=== PATIENT | female | born 1960 | race Caucasian/White ===

== ENCOUNTER → 2017-05-15 | Outpatient (CLI) | payer MEDICARE, OTHER ==
[~2017-05-15] MED LIST: ADULT LOW DOSE81 MG PO; AMOXICILLIN 50500 MG PO; CRESTOR5 MG; FLEXERIL PO; HYDROXYCHLOROQ200 M1; LEVOXYL200 MCG; NORCO 5-325 TA1 EACH PO; PREDNISONE 20 M20 MG PO; ROBITUSSIN COU237 ML PO; ROBITUSSIN15 MG/5 M1; ULTRAM 50MG TAB50 MG PO; VENTOLIN HFA INH8 GM IH; ZPAK PO
== END ==
LOC: M.LAB 10:32
DX: E03.9 Hypothyroidism, unspecified (principal); E78.5 Hyperlipidemia, unspecified

== ENCOUNTER → 2017-08-13 | Outpatient (CLI) | payer MEDICARE, OTHER ==
[2017-08-13 10:09] LABS: CHOLESTEROL 208 mg/dL (<200); HDL CHOLESTEROL 28 mg/dL (>40); LDL CHOLESTEROL 144 mg/dL (<100); TC:HDL 7.4 Ratio (Not establshd); TRIGLYCERIDE 181 mg/dL (<150); VLDL 36 mg/dL (<40)
[2017-08-13 10:10] LABS: SERUM ASSESSMENT Clear
== END ==
LOC: M.LAB 09:28
PROVIDERS: Internal Medicine Cardiovascular Disease
DX: E78.5 Hyperlipidemia, unspecified (principal)

== ENCOUNTER → 2019-02-23 | Outpatient (CLI) | payer OTHER | LOC: M.LAB 09:17 | DX: E03.9 Hypothyroidism, unspecified (principal) ==

== ENCOUNTER 2020-11-13 20:09 | Emergency (ER) | payer OTHER ==
[~2020-11-13] VITALS: Ht 152.4 cm; Wt 99.8 kg
[2020-11-13] MEDS ORDERED: METFORMIN HCL500 M3 PO (20:31)
[2020-11-13 21:45] LABS: URINE BLOOD 3+ (Negative); URINE CLARITY CLOUDY; URINE COLOR DARK YELLOW; URINE GLUCOSE-RANDOM NEGATIVE (Negative); URINE KETONES NEGATIVE (Negative); URINE LEUKOCYTES-REFLEX 1+ (Negative); URINE PROTEIN 2+ (Negative); URINE SPECIFIC GRAVITY >= 1.030 (1.005-1.030)
[2020-11-13 21:48] LABS: ICTOTEST (BILI CONFIRMATORY) Negative (Negative); URINE BILIRUBIN 1+ (Negative); URINE NITRITE-REFLEX POSITIVE (Negative)
[2020-11-13 21:50] LABS: BACTERIA-REFLEX 1-9 Few /HPF (None Seen); SQUAMOUS 4-10 Moderate /LPF (0-3); URINE RBC >20 Many /HPF (0-2); URINE WBC-REFLEX 0-5 Rare /HPF (0-5)
[2020-11-13 21:51] LABS: CASTS None Seen /LPF (None Seen); CRYSTALS None Seen /LPF (None Seen)
[2020-11-13 21:57] LABS: ABSOLUTE BASOPHILS 0.1 thou/uL (0.0-0.2); ABSOLUTE EOSINOPHILS 0.2 thou/uL (0.0-0.7); ABSOLUTE LYMPHOCYTES 2.2 thou/uL (0.8-5.3); ABSOLUTE MONOCYTES 0.6 thou/uL (0.0-1.2); BASOPHILS 0.7 %; HEMATOCRIT 34.5 % (37.0-47.0); LYMPHOCYTES 20.2 %; MCH 32.3 pg (26.0-34.0); MCHC 34.8 g/dL (28.0-37.0); MCV 92.7 fL (80.0-100.0); MONOCYTES 5.3 %; MPV 7.3 fl. (7.2-11.1); NUCLEATED RBCS 0 /100WBC; PLATELET COUNT* 302 thou/uL (150-400); POLYS 71.8 %; RBC 3.72 mil/uL (4.20-5.00); RDW-CV 13.2 % (10.5-14.5); WBC 11.1 thou/uL (4.0-11.0)
[2020-11-13 22:03] LABS: CALCIUM 9.2 mg/dL (8.5-10.1); POTASSIUM 4.2 mmol/L (3.5-5.1)
[2020-11-13 22:08] LABS: ALBUMIN 3.9 g/dL (3.4-5.0); TOTAL BILIRUBIN 0.3 mg/dL (<0.1-1.0); TOTAL PROTEIN 7.7 g/dL (6.4-8.2)
[2020-11-14] MEDS ORDERED: BACTRIM DS TAB1 EACH PO (00:04)
[2020-11-14] MEDS ORDERED: ZOFRAN ODT4 MG PO (00:04)
[2020-11-14] MEDS ORDERED: HYDROCODON-ACE1 EAC8 PO (00:04)
[2020-11-14 00:57] VITALS: BP 111/64
== END 2020-11-14 00:58 | disposition home or self-care (01) ==
LOC: M.ERS 20:09
PROVIDERS: Emergency Medicine
DX: N39.0 Urinary tract infection, site not specified (principal); R31.9 Hematuria, unspecified; M32.9 Systemic lupus erythematosus, unspecified; Z90.710 Acquired absence of both cervix and uterus; Z90.49 Acquired absence of other specified parts of digestive tract